=== PATIENT | male | born 1945 | race Caucasian/White ===

== ENCOUNTER → 2017-02-13 | Outpatient (CLI) | payer MEDICARE | END | disposition home or self-care (01) | LOC: PCVCCLINIC 13:19 | PROVIDERS: ATTEND Internal Medicine | DX: I42.9 Cardiomyopathy, unspecified (principal); I50.20 Unspecified systolic (congestive) heart failure; E11.9 Type 2 diabetes mellitus without complications; I51.7 Cardiomegaly; Z86.73 Personal history of transient ischemic attack (TIA), and cerebral infarction without residual deficits; Z87.891 Personal history of nicotine dependence; Z79.899 Other long term (current) drug therapy | CPT/HCPCS: 93005; G0463 ==

== ENCOUNTER → 2017-02-23 | Outpatient (CLI) | payer MEDICARE ==
[~2017-02-23] MED LIST: REGADENOSON 0.4 MG/5 ML DISP.SYRIN. IV ONE
--- NOTE | 2017-02-23 09:26 | PCVCIMAG ---
APPROVED REPORT Indications Stenosis Risk Factors TIA/CVA History Diabetes Doppler Spectral Velocity Analysis PSV / EDVPSV / EDV ECA (R) 70 / 5 cm/sECA (L) 60 / 0 cm/s dICA (R) 53 / 19 cm/sdICA (L) 60 / 18 cm/s Ariella (R) 56 / 21 cm/smICA (L) 48 / 18 cm/s pICA (R) 43 / 12 cm/spICA (L) 52 / 18 cm/s Bulb (R) 44 / 12 cm/sBulb (L) 43 / 13 cm/s dCCA (R) 60 / 13 cm/sdCCA (L) 66 / 10 cm/s mCCA (R) 68 / 16 cm/smCCA (L) 78 / 17 cm/s Vert (R) 46 / 16 cm/sVert (L) 43 / 12 cm/s ICA/CCA 0.83ICA/CCA 0.77 Basic Measurements Blood Pressure: Pulses: Right Left RightLeft Brachial(Sitting) 124/77ylTq813/76mmHgTemporal Real Time B-Mode Imaging Vert. (R)AntegradeVert. (L)Antegrade Findings The right carotid bulb has minimal plaque. The right proximal internal carotid artery shows no significant stenosis. The right common carotid artery shows no significant stenosis. The right external carotid artery shows no significant stenosis. The left carotid bulb has minimal plaque. The left proximal internal carotid artery shows no significant stenosis. The left common carotid artery shows no significant stenosis. The left external carotid artery shows no significant stenosis. Conclusion 1. No significant stenosis involving either carotid artery 2. Antegrade vertebral flow
--- NOTE | 2017-02-28 14:22 | PCVCIMAG ---
APPROVED REPORT Study performed: 02/23/2017 08:36:14 EXAM: Comprehensive 2D, Doppler, and color-flow Echocardiogram Patient Location: Echo lab Status: routine BSA: 1.73 HR: 69 bpmBP: 124/76 mmHg Rhythm: LBBB Other Information Study Quality: Good Risk Factors: Cardiac Risk Factors: DM Indications Chest Pressure Cardiomyopathy 2D Dimensions LVEF(%): 25.00 (>50%) IVSd: 9.14 (7-11mm)LVOT Diam: 18.60 (18-24mm) LVDd: 65.39 mm PWd: 9.97 (7-11mm)Ascending Ao: 28.73 (22-36mm) LVDs: 58.69 (25-40mm) Left Atrium: 39.25 (27-40mm) Aortic Root: 26.91 mm LV Single Plane 4CH: 26.51 % LV Single Plane 2CH: 24.20 %Chao's LVEF: 25.35 % Biplane EF: 25.4 % Volumes Left Atrial Volume (Systole) Single Plane 4CH: 79.58 mLSingle Plane 2CH: 65.24 mL LA ESV Index: 43.00 mL/m2 Aortic Valve AoV Peak Bipin.: 1.25 m/s AO Peak Gr.: 7.16 mmHgLVOT Max P.38 mmHg LVOT Max V: 0.83 m/s JATIN Vmax: 1.79 cm2 Mitral Valve E/A Ratio: 1.8 MV Decel. Time: 141.46 ms MV E Max Bipin.: 1.07 m/s MV A Bipin.: 0.58 m/s IVRT: 65.74 ms TDI E/Lateral E': 26.75E/Medial E': 35.67 Medial E' Bipin.: 0.03 m/s Lateral E' Bipin.: 0.04 m/s Pulmonary Valve PV Peak Bipin.: 0.67 m/sPV Peak Gr.: 1.79 mmHg SD End Vmax: 1.91 m/s Tricuspid Valve TR Peak Bipin.: 3.83 m/sRAP Estimate: 5.00 mmHg TR Peak Gr.: 58.60 mmHg PA Pressure: 63.00 mmHg Left Ventricle Left ventricle is dilated. There is global hypokinesis of the left ventricle. There is normal left ventricular wall thickness. Left ventricular systolic function is moderate to severely decreased. LVEF is 25%. The left ventricular diastolic function is normal. Right Ventricle The right ventricle is normal size. The right ventricular systolic function is normal. Atria Left atrium is moderately dilated. Right atrium is mildly dilated. Aortic Valve The aortic valve is normal in structure. Trace aortic regurgitation. There is no aortic valvular stenosis. Mitral Valve The mitral valve is normal in structure. Moderate mitral regurgitation. No evidence of mitral valve stenosis. Tricuspid Valve The tricuspid valve is normal in structure. Mild tricuspid regurgitation. Pulmonary artery pressure is 63 mmHg. Pulmonic Valve The pulmonary valve is normal in structure. Mild pulmonic regurgitation. Great Vessels The aortic root is normal in size. IVC is normal in size and collapses with >50% inspiration Pericardium There is no pericardial effusion. <Conclusion> Left ventricle is dilated. Left ventricular systolic function is moderate to severely decreased. LVEF is 25%. Right atrium is mildly dilated. The aortic valve is normal in structure. Trace aortic regurgitation. The mitral valve is normal in structure. Moderate mitral regurgitation. The tricuspid valve is normal in structure. Mild tricuspid regurgitation. Pulmonary artery pressure is 63 mmHg. The pulmonary valve is normal in structure. Mild pulmonic regurgitation.
--- NOTE | 2017-02-28 14:33 | PCVCIMAG ---
APPROVED REPORT Exam: Nuclear Stress Test Indication: Dyspnea, Cardiomyopathy, LBBB Patient Location: Out-Patient Stress Nurse: Tayler Darling RN, Lisset Eagle RN [place] Tech:ELISABETH BritoMT Ht: 5 ft 2 in Wt: 158 lbs BSA: 1.73 m2 HR: 68 bpm BP: 156/92 mmHg BMI: 28.8 Rhythm: LBBB, SR Medical History Medical History: PVD,CVD, Diabetic Noninsulin, CHF, Age Medications: Enalapril, Carvedilol (held 24 hours) Lasix, ASA, Metformin Allergies: No known drug allergies Pretest Chest Pain Characteristics: No chest pain Exercise History: Physically active NM EXAM: Myocardial Perfusion REST/STRESS Imaging Protocol: Rest Tc-99m/Stress Tc-99m 1 day Resting Data Rest SPECT myocardial perfusion imaging was performed in supine position 45 minutes following the intravenous injection of 10.3 mCi of Tc-99m Sestamibi. Time of rest injection: 0930 Date: 02/23/2017 Administration Route: IV Administration Site: Right Arm Pharmacologic Stress Pharmacologic stress test was performed by injecting Regadenoson 0.4 mg IV push followed by the intravenous injection of 33.9 mCi of Tc-99m Sestamibi. Time of stress injection: 1100 Date: 02/23/2017 Administration Route: IV Administration Site: Right Arm Gated Stress SPECT was performed 45 minutes after stress injection. The images were gated to evaluate regional wall motion and calculate left ventricular ejection fraction. Study Data Post stress, the left ventricular ejection was 28%.. SSS: 4 SRS: 1 SDS: 3 TID = 1.10. Perfusion There is a large area of moderately reduced uptake in the entire segment of the inferior wall which is seen on the stress images as well as the resting images. This area is hypokinetic and is most consistent with myocardial scar. Wall Motion THERE IS GLOBAL HYPOKINESIS WHICH IS SEVERE Nuclear Conclusion 1. LOW RISK STUDY WITHOUT STRESS INDUCIBLE ISCHEMIA Interpreted by: Saumya Urias MD Electronically Approved: 02/28/2017 14:32:04 Stress Test Details Stress Test: Pharmacologic stress was paired with low level exercise. Reason for pharmacologic stress test: LBBB. HR Resting HR: 68 bpmMax Heart Rate (APMHR): 151 bpm Max HR Achieved: 103 bpmTarget HR (85% APMHR): 128 bpm % of APMHR: 68 Recovery HR: 82 bpm BP Resting BP: 156/92 mmHg Max BP: 168/83 mmHg ECG Resting ECG: Sinus Rhythm, LBBB Stress ECG: Sinus Tachycardia, LBBB Recovery ECG: Sinus Rhythm, LBBB Clinical Reason for Termination: Completed protocol Stress Symptoms: Light -Headed Exercise duration: 4 min 00 sec Exercise capacity: 1.6 METs Symptoms resolved during recovery. Stress ECG Conclusion 1. ADEQUATE RESPONSE TO IV LEXISCAN 2. INADEQUATE HEART RATE RESPONSE FOR ECG DIAGNOSIS <Conclusion> 1. ADEQUATE RESPONSE TO IV LEXISCAN 2. INADEQUATE HEART RATE RESPONSE FOR ECG DIAGNOSIS
== END | disposition home or self-care (01) ==
LOC: PCVCIMAG 07:55
PROVIDERS: ATTEND Internal Medicine
DX: I65.23 Occlusion and stenosis of bilateral carotid arteries (principal); I08.3 Combined rheumatic disorders of mitral, aortic and tricuspid valves; I42.9 Cardiomyopathy, unspecified; I50.20 Unspecified systolic (congestive) heart failure; E78.5 Hyperlipidemia, unspecified; E11.9 Type 2 diabetes mellitus without complications; I44.7 Left bundle-branch block, unspecified; I73.9 Peripheral vascular disease, unspecified; Z86.73 Personal history of transient ischemic attack (TIA), and cerebral infarction without residual deficits; Z87.891 Personal history of nicotine dependence
CPT/HCPCS: 78452; 93017; 93306; 93880; A9500; J2785

== ENCOUNTER → 2017-03-02 | Outpatient (CLI) | payer MEDICARE | END | disposition home or self-care (01) | LOC: PCVCCLINIC 14:04 | PROVIDERS: ATTEND Internal Medicine | DX: R53.82 Chronic fatigue, unspecified (principal) | CPT/HCPCS: 36415 ==

== ENCOUNTER → 2017-05-01 | Outpatient (CLI) | payer MEDICARE | END | disposition home or self-care (01) | LOC: PCVCCLINIC 09:56 | PROVIDERS: ATTEND Internal Medicine | DX: I50.20 Unspecified systolic (congestive) heart failure (principal); I42.9 Cardiomyopathy, unspecified; E78.5 Hyperlipidemia, unspecified; Z79.82 Long term (current) use of aspirin; Z79.899 Other long term (current) drug therapy; Z87.891 Personal history of nicotine dependence | CPT/HCPCS: 80061; 93005; G0463 ==

== ENCOUNTER → 2017-09-11 | Outpatient (CLI) | payer MEDICARE | END | disposition home or self-care (01) | LOC: PCVCCLINIC 10:27 | DX: I42.9 Cardiomyopathy, unspecified (principal); I50.20 Unspecified systolic (congestive) heart failure; I44.7 Left bundle-branch block, unspecified; E78.5 Hyperlipidemia, unspecified; Z79.82 Long term (current) use of aspirin; Z79.899 Other long term (current) drug therapy; Z79.84 Long term (current) use of oral hypoglycemic drugs; Z87.891 Personal history of nicotine dependence | CPT/HCPCS: 36415; G0463 ==

== ENCOUNTER → 2017-09-18 | Outpatient (CLI) | payer MEDICARE | END | disposition home or self-care (01) | LOC: PCVCCLINIC 09:22 | DX: I42.9 Cardiomyopathy, unspecified (principal); I50.20 Unspecified systolic (congestive) heart failure; E78.5 Hyperlipidemia, unspecified; R53.82 Chronic fatigue, unspecified; Z87.891 Personal history of nicotine dependence | CPT/HCPCS: 36415 ==

== ENCOUNTER → 2017-09-27 | Outpatient (CLI) | payer MEDICARE | END | disposition home or self-care (01) | LOC: PCVCCLINIC 09:20 | DX: I11.0 Hypertensive heart disease with heart failure (principal); I50.20 Unspecified systolic (congestive) heart failure; E78.5 Hyperlipidemia, unspecified | CPT/HCPCS: 36415 ==

== ENCOUNTER → 2017-10-23 | Outpatient (CLI) | payer MEDICARE | END | disposition home or self-care (01) | LOC: PCVCIMAG 09:19 | DX: I42.9 Cardiomyopathy, unspecified (principal); E78.5 Hyperlipidemia, unspecified; I44.7 Left bundle-branch block, unspecified; I34.0 Nonrheumatic mitral (valve) insufficiency; I11.0 Hypertensive heart disease with heart failure; I50.9 Heart failure, unspecified | CPT/HCPCS: 93308 ==

== ENCOUNTER → 2017-11-20 | Outpatient (CLI) | payer MEDICARE | END | disposition home or self-care (01) | LOC: PCVCCLINIC 12:46 | DX: I11.0 Hypertensive heart disease with heart failure (principal); I50.20 Unspecified systolic (congestive) heart failure; I42.9 Cardiomyopathy, unspecified; E78.5 Hyperlipidemia, unspecified; Z79.82 Long term (current) use of aspirin; Z79.84 Long term (current) use of oral hypoglycemic drugs; Z79.899 Other long term (current) drug therapy | CPT/HCPCS: 80061; G0463 ==

== ENCOUNTER → 2018-04-16 | Outpatient (CLI) | payer MEDICARE | END | disposition home or self-care (01) | LOC: PCVCCLINIC 15:00 | PROVIDERS: ATTEND Internal Medicine | DX: E78.5 Hyperlipidemia, unspecified (principal) | CPT/HCPCS: 36415; 80061 ==

== ENCOUNTER → 2018-04-17 | Outpatient (CLI) | payer MEDICARE ==
--- NOTE | 2018-04-17 12:04 | PCVCIMAG ---
APPROVED REPORT Study performed: 04/17/2018 10:39:39 EXAM: Comprehensive 2D, Doppler, and color-flow Echocardiogram Patient Location: Echo lab Status: routine BSA: 1.73 HR: 70 bpmBP: 140/820 mmHg Rhythm: NSR Other Information Study Quality: Good Risk Factors: Cardiac Risk Factors: Hyperlipidemia Indications Cardiomyopathy LBBB Left Ventricle Left ventricle is dilated. LVEF is 30%. <Conclusion> Left ventricle is dilated. LVEF is 30%.
== END | disposition home or self-care (01) ==
LOC: PCVCIMAG 13:00
PROVIDERS: ATTEND Internal Medicine
DX: I44.7 Left bundle-branch block, unspecified (principal); I42.9 Cardiomyopathy, unspecified; I65.29 Occlusion and stenosis of unspecified carotid artery; R06.00 Dyspnea, unspecified; E78.5 Hyperlipidemia, unspecified; Z86.73 Personal history of transient ischemic attack (TIA), and cerebral infarction without residual deficits
CPT/HCPCS: 93308

== ENCOUNTER → 2018-10-25 | Outpatient (CLI) | payer MEDICARE | END | disposition home or self-care (01) | LOC: PCVCCLINIC 10:00 | PROVIDERS: ATTEND Internal Medicine | DX: I42.9 Cardiomyopathy, unspecified (principal); I50.20 Unspecified systolic (congestive) heart failure; E78.5 Hyperlipidemia, unspecified; I44.7 Left bundle-branch block, unspecified; E11.9 Type 2 diabetes mellitus without complications | CPT/HCPCS: 36415; 80061; 93005; G0463 ==

== ENCOUNTER → 2019-01-10 | Outpatient (CLI) | payer MEDICARE ==
--- NOTE | 2019-01-10 10:34 | PCVCIMAG ---
APPROVED REPORT Study performed: 01/10/2019 09:33:21 EXAM: Comprehensive 2D, Doppler, and color-flow Echocardiogram Patient Location: Echo lab Room #: 2Status: routine BSA: 1.74 HR: 60 bpmBP: 134/70 mmHg Rhythm: LBBB Other Information Study Quality: Adequate Indications Cardiomyopathy 2D Dimensions IVSd: 5.59 (7-11mm)LVOT Diam: 19.41 (18-24mm) LVDd: 45.96 mm PWd: 10.28 (7-11mm)Ascending Ao: 28.28 (22-36mm) LVDs: 38.79 (25-40mm) Left Atrium: 38.64 (27-40mm) Aortic Root: 23.97 mm LV Single Plane 4CH: 38.22 % LV Single Plane 2CH: 46.05 % Biplane EF: 43.0 % Volumes Left Atrial Volume (Systole) Single Plane 4CH: 57.56 mLSingle Plane 2CH: 61.40 mL Biplane LA Volume: 60.00 mLLA ESV Index: 35.00 mL/m2 Aortic Valve AoV Peak Bipin.: 1.59 m/s AO Peak Gr.: 10.28 mmHgLVOT Max P.23 mmHg LVOT Max V: 0.71 m/s JATIN Vmax: 1.31 cm2 Mitral Valve E/A Ratio: 0.5 MV Decel. Time: 228.20 ms MV E Max Bipin.: 0.57 m/s MV A Bipin.: 1.06 m/s IVRT: 179.93 ms TDI E/Lateral E': 19.00E/Medial E': 28.50 Medial E' Bipin.: 0.02 m/s Lateral E' Bipin.: 0.03 m/s Pulmonary Valve PV Peak Bipin.: 1.03 m/sPV Peak Gr.: 4.20 mmHg Pulmonary Vein P Vein S: 0.56 m/sP Vein A: 0.45 m/s P Vein D: 0.35 m/sP Vein A Dur.: 115.3 msec P Vein S/D Ratio: 1.60 Tricuspid Valve TV Vmax: 0.68 m/s Left Ventricle The left ventricle is normal size with a mildly dilated apex. Mid -distal septal hypokinesis with discordant motion consistent with a LBBB. There is global mild hypokinesis of the left ventricle. There is normal left ventricular wall thickness. Left ventricular systolic function is mild to moderately decreased. LVEF is 40-45%. Grade I - abnormal relaxation pattern. Findings suggest the left atrial pressure is elevated. Right Ventricle The right ventricle is normal size. The right ventricular systolic function is normal. Atria Left atrium is borderline dilated. The right atrium size is normal. Aortic Valve Aortic valve is trileaflet. Mild aortic valve sclerosis. No aortic regurgitation is present. There is no aortic valvular stenosis. Mitral Valve The mitral valve is normal in structure. There is no mitral valve regurgitation noted. No evidence of mitral valve stenosis. Tricuspid Valve The tricuspid valve is normal in structure. There is no tricuspid valve regurgitation noted. Pulmonic Valve The pulmonary valve is normal in structure. There is no pulmonic valvular regurgitation. Great Vessels The aortic root is normal in size. Aortic arch is normal in caliber. Ascending aorta is not well visualized. IVC is normal in size and collapses >50% with inspiration. Pericardium There is no pericardial effusion. There is no pleural effusion. <Conclusion> The left ventricle is normal size with a mildly dilated apex. LVEF is 40-45%. Mid -distal septal hypokinesis with discordant motion consistent with a LBBB. There is global mild hypokinesis of the left ventricle. Left atrium is borderline dilated. Aortic valve is trileaflet. Mild aortic valve sclerosis. The mitral valve is normal in structure. The tricuspid valve is normal in structure. The pulmonary valve is normal in structure. There is no pericardial effusion.
== END | disposition home or self-care (01) ==
LOC: PCVCIMAG 09:13
PROVIDERS: ATTEND Internal Medicine
DX: I35.0 Nonrheumatic aortic (valve) stenosis (principal); I42.9 Cardiomyopathy, unspecified; E78.5 Hyperlipidemia, unspecified; I50.20 Unspecified systolic (congestive) heart failure; E11.9 Type 2 diabetes mellitus without complications; I44.7 Left bundle-branch block, unspecified; Z87.891 Personal history of nicotine dependence
CPT/HCPCS: 93306; G0463